=== PATIENT | female | born 1945 | race Caucasian/White ===

== ENCOUNTER → 2024-11-19 07:09 | Outpatient (REF) | payer MEDICARE, OTHER, SELFPAY | LOC: RAD 07:09 | PROVIDERS: ATTENDING PHYSICIAN Colon & Rectal Surgery; FAMILY PHYSICIAN Family Medicine | DX: K62.89 Other specified diseases of anus and rectum (principal); R10.0 Acute abdomen | CPT/HCPCS: 74270 ==